=== PATIENT | female | born 1940 | race Caucasian/White ===

== ENCOUNTER 2017-03-27 05:39 | Emergency (ER) | payer OTHER ==
[~2017-03-27] VITALS: Ht 167.6 cm; Wt 68.0 kg
[~2017-03-27 05:39] MED LIST: LEVO100T5 PO; LISI40TA PO; NAPR375T PO; OXYB5TAB10 PO; PRIL20CA9 PO
[2017-03-27 05:43] VITALS: BP 215/100; PULSE 100; RESP 18; TEMP 97.3; O2SAT 97
[2017-03-27 06:01] VITALS: BP 197/95; PULSE 85; RESP 18; O2SAT 98
[2017-03-27] MEDS ORDERED: BACL10TA PO (06:05)
[2017-03-27 06:12] VITALS: O2SAT 98
[2017-03-27 06:15] LABS: BASOPHIL % 0.4 % (0.0-2.0); EOSINOPHIL # 0.1 TH/MM3 (0-0.4); HEMATOCRIT 38.7 % (35.0-46.0); HEMO FLAGS DIFF FINAL; LYMPH % 10.6 % (9.0-44.0); LYMPHOCYTE # 1.2 TH/MM3 (1.0-4.8); MEAN CELL VOLUME 90.1 FL (80.0-100.0); MEAN CORPUSCULAR HEMOGLOBIN 31.2 PG (27.0-34.0); MEAN CORPUSCULAR HGB CONC 34.7 % (32.0-36.0); MONO % 8.1 % (0.0-8.0); NEUT % 79.9 % (16.0-70.0); PLATELET COUNT 265 TH/MM3 (150-450); RED CELL DISTRIBUTION WIDTH 13.7 % (11.6-17.2); WHITE BLOOD COUNT 11.2 TH/MM3 (4.0-11.0)
--- NOTE | 2017-03-27 06:19 | PD ---
HPI Chief Complaint: Fall Time Seen by Provider: 06:00 Travel History International Travel<30 days: No Contact w/Intl Traveler<30days: No Traveled to known affect area: No History of Present Illness HPI The patient is a 76 year old female who presents to the [facility] emergency department with a history of right sided chest wall pain underneath her breast, headache, and neck pain that began on Monday afternoon when she fell backward while helping her cut tree branches. She reports that initially she did not have very much pain, however over time the pain has increased. She reports that yesterday morning it seemed to peak. She reports that she tried taking tramadol for the pain without relief. She reports that she fell backwards striking the back of her head on the dirt. She denies having any loss of consciousness. She has had nausea without vomiting. She denies having any numbness or tingling to her extremities. She denies having any new weakness to her extremities. She reports having pain in her chest with trying to take a deep breath. She reports that approximately 5 months ago she broke several ribs when she fell down some steps while walking backwards folding boxes. Otherwise on review of systems, the patient denies any recent fevers, cough, congestion, shortness of breath, abdominal pain, diarrhea, urinary symptoms, or neurologic symptoms. She reports that she has been moving her bowels regularly. [facility] Past Medical History Narrative Medical The patient's past medical history is significant for anxiety and depression, hypertension, hemorrhoids, hypothyroid disorder, acid reflux, spastic bladder, recurrent falls, history of rib fractures, history of osteoarthritis. Asthma: No Blood Disorders: Yes (HEMORRHOIDS) Anxiety: Yes Depression: Yes (AT TIMES) Heart Rhythm Problems: No Cancer: No Cardiovascular Problems: No High Cholesterol: No Chemotherapy: No Chest Pain: No Congestive Heart Failure: No COPD: No Diabetes: No Endocrine: Yes Gastrointestinal Disorders: Yes (HX REFLUX) Glaucoma: No Genitourinary: Yes (SPASTIC BLADDER, INCONTINENCE) Hepatitis: No Hiatal Hernia: No Hypertension: Yes Immune Disorder: No Medical other: Yes (RECENT FALL HIT HEAD 04/[address] GILLETTE TODAY) Musculoskeletal: Yes (NECK, ARTHRITIS) Neurologic: No Psychiatric: Yes (ANXIETY) Reproductive: No Respiratory: No Immunizations Current: Yes Radiation Therapy: No Sleep Apnea: No Thyroid Disease: Yes (UNDERACTIVE THYROID ) Tetanus Vaccination: Unknown Influenza Vaccination: No ?: Not Menopausal: Yes : 4 Para: 4 Past Surgical History Narrative Surgical The patient's past surgical history is significant for left knee surgery, endoscopy. Abdominal Surgery: No Cardiac Surgery: No Section: No Ear Surgery: No Endocrine Surgery: No Eye Surgery: No Genitourinary Surgery: No Gynecologic Surgery: No Oral Surgery: No Pacemaker: No Thoracic Surgery: No Other Surgery: Yes (left knee surgery 05/03) Social History Alcohol Use: No Tobacco Use: No Substance Use: No Allergies-Medications (Allergen,Severity, Reaction): Coded Allergies: No Known Allergies (Verified , 03/27/17) Reported Meds & Prescriptions Reported Meds & Active Scripts Active Reported Baclofen 10 Mg Tab 10 Mg PO TID Ditropan (Oxybutynin Chloride) 5 Mg Tab 5 Mg PO Q12HR Levothyroxine (Levothyroxine Sodium) 100 Mcg Tab 100 Mcg PO DAILY Lisinopril 40 Mg Tab Unknown Dose PO DAILY Review of Systems Except as stated in HPI: all other systems reviewed are Neg General / Constitutional: No: Fever Eyes: No: Visual changes HENT: Positive: Headaches, Neck Stiffness, Neck Pain Cardiovascular: Positive: Chest Pain or Discomfort (right-sided chest wall pain underneath the right breast) Respiratory: No: Shortness of Breath Gastrointestinal: Positive: Nausea, No: Vomiting, Diarrhea, Abdominal Pain Genitourinary: No: Dysuria Musculoskeletal: No: Pain Skin: No Rash Neurologic: Positive: Headache, No: Weakness, Focal Abnormalities, Change in Mentation, Slurred Speech, Sensory Disturbance Psychiatric: No: Depression Endocrine: No: Polydipsia Hematologic/Lymphatic: No: Easy Bruising Physical Exam Narrative General: The patient is a well-developed well-nourished female, uncomfortable appearing on arrival reporting a severe headache. Head and Neck exam: Head is normocephalic atraumatic. Eyes: EOMI, pupils are equal round and reactive to light. Nose: Midline septum with pink mucous membranes Mouth: Dentition unremarkable. Moist mucus membranes. Posterior oropharynx is not erythematous. No tonsillar hypertrophy. Uvula midline. Airway patent. Neck: No palpable lymphadenopathy. Trachea is midline. The patient was placed in a cervical collar. Cardiovascular: Regular rate and rhythm without murmurs, gallops, or rubs. Lungs: Clear to auscultation bilaterally. No wheezes, rhonchi, or rales. Abdomen: Soft, without tenderness to palpation in all 4 quadrants of the abdomen. No guarding, rebound, or rigidity. Normal bowel sounds are audible. No tenderness on palpation of McBurney's point. Extremities: No clubbing, cyanosis, or edema. 2+ pulses in all 4 extremities. No calf tenderness on palpation. No extremity pain or tenderness on palpation. No deformity or crepitus. She has full range of motion of her extremities. Back: No spinous process tenderness to palpation. No costovertebral angle tenderness to palpation. Neurologic Exam: Cranial nerves 2-12 were intact on exam. Strength is 5/5 in all 4 extremities. No sensory deficits noted. Skin Exam: No rash noted. Intact skin that is warm and dry. Data Data Last Documented VS Vital Signs Date Time Temp Pulse Resp B/P Pulse Ox O2 Delivery O2 Flow Rate FiO2 03/27/17 06:12 98 Room Air 03/27/17 06:01 85 18 197/95 03/27/17 05:[address] Brain W/O Iv Contrast(Rout) (03/27/17 06:03) Ct Cerv Spine W/O Contrast (03/27/17 06:03) Electrocardiogram (03/27/17 06:03) Complete Blood Count With Diff (03/27/17 06:03) Comprehensive Metabolic Panel (03/27/17 06:03) Troponin I (03/27/17 06:03) Prothrombin Time / Inr (Pt) (03/27/17 06:03) Act Partial Throm Time (Ptt) (03/27/17 06:03) Chest, Single Ap (03/27/17 06:03) Iv Access Insert/Monitor (03/27/17 06:03) Ecg Monitoring (03/27/17 06:03) Oximetry (03/27/17 06:03) Apply Cervical Collar (03/27/17 06:03) Morphine Inj (Morphine Inj) (03/27/17 06:30) Ondansetron Inj (Zofran Inj) (03/27/17 06:30) Morphine Inj (Morphine Inj) (03/27/17 06:31) Labs Laboratory Tests Test 03/27/17 06:05 White Blood Count 11.2 TH/MM3 Red Blood Count 4.30 MIL/MM3 Hemoglobin 13.4 GM/DL Hematocrit 38.7 % Mean Corpuscular Volume 90.1 FL Mean Corpuscular Hemoglobin 31.2 PG Mean Corpuscular Hemoglobin 34.7 % Concent Red Cell Distribution Width 13.7 % Platelet Count 265 TH/MM3 Mean Platelet Volume 7.8 FL Neutrophils (%) (Auto) 79.9 % Lymphocytes (%) (Auto) 10.6 % Monocytes (%) (Auto) 8.1 % Eosinophils (%) (Auto) 1.0 % Basophils (%) (Auto) 0.4 % Neutrophils # (Auto) 9.0 TH/MM3 Lymphocytes # (Auto) 1.2 TH/MM3 Monocytes # (Auto) 0.9 TH/MM3 Eosinophils # (Auto) 0.1 TH/MM3 Basophils # (Auto) 0.0 TH/MM3 CBC Comment DIFF FINAL Differential Comment Prothrombin Time 10.7 SEC Prothromb Time International 1.0 RATIO Ratio Activated Partial 28.0 SEC Thromboplast Time Sodium Level 134 MEQ/L Potassium Level 3.3 MEQ/L Chloride Level 102 MEQ/L Carbon Dioxide Level 22.0 MEQ/L Anion Gap 10 MEQ/L Blood Urea Nitrogen 16 MG/DL Creatinine 0.63 MG/DL Estimat Glomerular Filtration 91 ML/MIN Rate Random Glucose 138 MG/DL Calcium Level 9.2 MG/DL Total Bilirubin 0.7 MG/DL Aspartate Amino Transf 14 U/L (AST/SGOT) Alanine Aminotransferase 16 U/L (ALT/SGPT) Alkaline Phosphatase 97 U/L Troponin I LESS THAN 0.02 NG/ML Total Protein 7.7 GM/DL Albumin 3.9 GM/DL [facility] Medical Decision Making Medical Screen Exam Complete: Yes Emergency Medical Condition: Yes Medical Record Reviewed: Yes Differential Diagnosis Intracranial hemorrhage, versus cervical spine trauma, versus concussion, versus musculoskeletal strain Narrative Course During the course of the patients emergency department visit, the patients history, examination, and differential diagnosis were reviewed with the patient. The patient had IV access obtained and blood work sent for analysis. The patient was initially provided morphine 4 mg IV for pain, Zofran 4 mg IV for nausea. The patients laboratory studies were reviewed and remarkable for a white count of 11.2, hemoglobin 13.4, platelets 265 with 79.9 neutrophils, monocytes 8.1, CMP is remarkable for sodium of 134, potassium 3.3 which was supplemented orally , glucose 138, AST 14, troponin I less than 0.02, PT PTT within normal limits. Radiology studies were reviewed and remarkable for a chest x-ray that shows multiple healing/healed rib fractures. CT scan of the head and neck are pending. The patient's case will be checked out to the oncoming emergency physician to disposition based on the conclusion of the patient's workup. The patient will need to be reassessed regarding her pain control and her blood pressure elevation. Diagnosis Primary Impression: Head injury Qualified Code: S09.90XA - Head injury, initial encounter Additional Impression: Neck pain Alicja Cruz MD Mar 27, 2017 06:19
[2017-03-27 06:27] LABS: PROTHROMBIN TIME - PATIENT 10.7 SEC (9.8-11.6)
[2017-03-27] MEDS ORDERED: ONDANSETRON HCL 4 MG/2 ML VIAL IV PUSH ONE (06:30)
[2017-03-27] MEDS ORDERED: MORPHINE SULFATE 4 MG/ML INJ IV PUSH ONE ×2 (06:30→07:30)
[2017-03-27] MEDS ORDERED: MORPHINE SULFATE 8 MG/ML INJ ONE (06:31)
[2017-03-27 06:37] LABS: ANION GAP 10 MEQ/L (5-15); AST (GOT) 14 U/L (15-37); BLOOD UREA NITROGEN 16 MG/DL (7-18); CHLORIDE 102 MEQ/L (98-107); GLOMERULAR FILTRATION RATE 91 ML/MIN (>89); POTASSIUM 3.3 MEQ/L (3.5-5.1); SODIUM (NA) 134 MEQ/L (136-145)
[2017-03-27 06:38] LABS: ALT (GPT) 16 U/L (10-53)
--- NOTE | 2017-03-27 06:40 | RADRPT ---
EXAM DATE/TIME: 03/27/2017 06:02 [facility] COMPARISON: CHEST SINGLE AP, July 24, 2016, 20:02. INDICATIONS : Pain in the anterior chest under right breast from a fall a few days ago. MEDICAL HISTORY : None. SURGICAL HISTORY : None. ENCOUNTER: Initial ACUITY: 3 days PAIN SCORE: 6/10 LOCATION: Right anterior chest FINDINGS: A single view of the chest demonstrates the lungs to be symmetrically aerated without evidence of mas s, infiltrate or effusion. The cardiomediastinal contours are unremarkable. Osseous structures are intact. Multiple healed rib fractures CONCLUSION: Lungs remain clear. There are multiple healed rib fractures. Juan Jacobs MD on March 27, 2017 at 6:38 Board Certified Radiologist. This report was verified electronically.
[2017-03-27 06:41] LABS: ALKALINE PHOSPHATASE 97 U/L (45-117); TOTAL BILIRUBIN ADULT 0.7 MG/DL (0.2-1.0)
--- NOTE | 2017-03-27 06:52 | RADRPT ---
EXAM DATE/TIME: 03/27/2017 06:35 [facility] COMPARISON: No previous studies available for comparison. INDICATIONS : Trauma; patient fell 3 days ago. RADIATION DOSE: 30.13 CTDIvol (mGy) MEDICAL HISTORY : Hypertension. Gastroesophageal reflux disease. SURGICAL HISTORY : None. ENCOUNTER: Initial ACUITY: 3 days PAIN SCALE: 7/10 LOCATION: cranial TECHNIQUE: Multiple contiguous axial images were obtained of the head. Using automated exposure control and adj ustment of the mA and/or kV according to patient size, radiation dose was kept as low as reasonably a chievable to obtain optimal diagnostic quality images. DICOM format image data is available electro nically for review and comparison. FINDINGS: CEREBRUM: The ventricles are normal for age. No evidence of midline shift, mass lesion, hemorrhage or acute in farction. No extra-axial fluid collections are seen. POSTERIOR FOSSA: The cerebellum and brainstem are intact. The 4th ventricle is midline. The cerebellopontine angle i s unremarkable. EXTRACRANIAL: The visualized portion of the orbits is intact. SKULL: The calvaria is intact. No evidence of skull fracture. CONCLUSION: Normal examination. Juan Jacobs MD on March 27, 2017 at 6:50 Board Certified Radiologist. This report was verified electronically.
[2017-03-27] MEDS ORDERED: POTASSIUM CHLORIDE 20 MEQ CONTROLLED RELEASE TAB PO ONE (07:00)
--- NOTE | 2017-03-27 07:05 | RADRPT ---
EXAM DATE/TIME: 03/27/2017 06:35 [facility] COMPARISON: No previous studies available for comparison. INDICATIONS : Trauma; patient fell 3 days ago and complains of increasing neck pain. RADIATION DOSE: 18.05 CTDIvol (mGy) MEDICAL HISTORY : Hypertension. Gastroesophageal reflux disease. SURGICAL HISTORY : None. ENCOUNTER: Initial ACUITY: 3 days PAIN SCALE: 7/10 LOCATION: neck TECHNIQUE: Volumetric scanning of the cervical spine was performed. Multiplanar reconstructions in the sagittal, coronal and oblique axial planes were performed. Using automated exposure control and adjustment o f the mA and/or kV according to patient size, radiation dose was kept as low as reasonably achievable to obtain optimal diagnostic quality images. DICOM format image data is available electronically f or review and comparison. FINDINGS: Alignment: Mild anterolisthesis is noted of C3 on C4. Craniocervical and cervical vertebral body alignment are o therwise intact. Osseous structures and facet joints: Vertebral bodies are intact without evidence of compression deformity. Moderate facet arthropathy is identified. There is joint space narrowing, subchondral sclerosis and marginal spurring. Posterior el ements are intact. Intervertebral disc spaces: Degenerative disc disease ranging from mild to severe is noted. Significant disc space narrowing with marginal spondylosis is noted at C4-5, C5-6 and C6-7. Disc osteophyte complexes at C4-5 and C5-6 are causing anterior epidural effacement but no significan t spinal cord compression. Moderate bilateral foraminal stenosis is noted at C4-5, C5-6 and C6-7. There is no evidence of significant soft disc herniation. Neurologic structures: Unremarkable CONCLUSION: Degenerative disc disease and facet arthropathy as described. Multilevel foraminal stenosis. No evidence of acute bony injury or traumatic listhesis. Jonathan Quinn MD on March 27, 2017 at 6:58 Board Certified Radiologist. This report was verified electronically.
--- NOTE | 2017-03-27 07:25 | PD ---
Physical Exam Date Seen by Provider: Mar 27, 2017 Time Seen by Provider: 07:00 Narrative The patient was signed out to me by Dr. Cruz at change of shift. We're awaiting the CT results of her head and neck. We are also watching her blood pressure. The patient states the pain is much improved after having the morphine. Blood pressure was still 228/98. She states she takes lisinopril at home. I have written for Vasotec 2.5 mg I V times one dose and for milligrams further of the morphine. Data Data Last Documented VS Vital Signs Date Time Temp Pulse Resp B/P Pulse Ox O2 Delivery O2 Flow Rate FiO2 03/27/17 08:52 78 199/88 03/27/17 08:33 98.2 [address] Brain W/O Iv Contrast(Rout) (03/27/17 06:03) Ct Cerv Spine W/O Contrast (03/27/17 06:03) Electrocardiogram (03/27/17 06:03) Complete Blood Count With Diff (03/27/17 06:03) Comprehensive Metabolic Panel (03/27/17 06:03) Troponin I (03/27/17 06:03) Prothrombin Time / Inr (Pt) (03/27/17 06:03) Act Partial Throm Time (Ptt) (03/27/17 06:03) Chest, Single Ap (03/27/17 06:03) Iv Access Insert/Monitor (03/27/17 06:03) Ecg Monitoring (03/27/17 06:03) Oximetry (03/27/17 06:03) Apply Cervical Collar (03/27/17 06:03) Morphine Inj (Morphine Inj) (03/27/17 06:30) Ondansetron Inj (Zofran Inj) (03/27/17 06:30) Morphine Inj (Morphine Inj) (03/27/17 06:31) Potassium Chloride (Kcl) (03/27/17 07:00) Enalaprilat Inj (Vasotec Inj) (03/27/17 07:30) Morphine Inj (Morphine Inj) (03/27/17 07:30) Hydralazine Inj (Apresoline Inj) (03/27/17 09:00) Labs Laboratory Tests Test 03/27/17 06:05 White Blood Count 11.2 TH/MM3 Red Blood Count 4.30 MIL/MM3 Hemoglobin 13.4 GM/DL Hematocrit 38.7 % Mean Corpuscular Volume 90.1 FL Mean Corpuscular Hemoglobin 31.2 PG Mean Corpuscular Hemoglobin 34.7 % Concent Red Cell Distribution Width 13.7 % Platelet Count 265 TH/MM3 Mean Platelet Volume 7.8 FL Neutrophils (%) (Auto) 79.9 % Lymphocytes (%) (Auto) 10.6 % Monocytes (%) (Auto) 8.1 % Eosinophils (%) (Auto) 1.0 % Basophils (%) (Auto) 0.4 % Neutrophils # (Auto) 9.0 TH/MM3 Lymphocytes # (Auto) 1.2 TH/MM3 Monocytes # (Auto) 0.9 TH/MM3 Eosinophils # (Auto) 0.1 TH/MM3 Basophils # (Auto) 0.0 TH/MM3 CBC Comment DIFF FINAL Differential Comment Prothrombin Time 10.7 SEC Prothromb Time International 1.0 RATIO Ratio Activated Partial 28.0 SEC Thromboplast Time Sodium Level 134 MEQ/L Potassium Level 3.3 MEQ/L Chloride Level 102 MEQ/L Carbon Dioxide Level 22.0 MEQ/L Anion Gap 10 MEQ/L Blood Urea Nitrogen 16 MG/DL Creatinine 0.63 MG/DL Estimat Glomerular Filtration 91 ML/MIN Rate Random Glucose 138 MG/DL Calcium Level 9.2 MG/DL Total Bilirubin 0.7 MG/DL Aspartate Amino Transf 14 U/L (AST/SGOT) Alanine Aminotransferase 16 U/L (ALT/SGPT) Alkaline Phosphatase 97 U/L Troponin I LESS THAN 0.02 NG/ML Total Protein 7.7 GM/DL Albumin 3.9 GM/DL [facility] Medical Record Reviewed: Yes Supervised Visit with RUTH: No Critical Care Narrative 76-year-old female who fell several days ago, presents with head pain. The patient has no evidence of acute neck injury or intracranial injury. The patient does have old rib fractures noted on chest x-ray. She'll be given 2 doses of IV pchest pain or chest pressure. Pin medicines. She has tramadol at home but does not touch her pain. She'll be driven for prescription for Lortabs. She'll also be instructed to use moist heat on the areas that are sore. She is instructed to follow up with her primary care physician within the week. Her blood pressure was elevated here and she hadn't taken her blood pressure medicine. She was complaining of no chest pain, chest pressure per children instructed to check her blood pressure when at home. It is still elevated, she is instructed to call her primary care physician. Diagnosis Primary Impression: Head injury Qualified Code: S09.90XA - Head injury, initial encounter Additional Impressions: Neck pain HTN (hypertension) Patient Instructions: Narcotic given in the ED Additional Instruction: Moist heat 2-3 days. Check blood pressure and if it continues to stay high, follow up with her primary care physician. Follow up with her primary care physician within one week. Scripts Hydrocodone-Acetaminophen (Lortab)5-325 Mg Tab1 Tab PO Q6H PRN (PAIN) #20 TAB Ref 0 Prov:Jerry Faustin MD 03/27/17 Disposition: 01 DISCHARGE HOME Condition: Stable Jerry Faustin MD Mar 27, 2017 07:25
[2017-03-27] MEDS ORDERED: ENALAPRILAT 1.25 MG/ML VIAL IV PUSH ONE (07:30)
[2017-03-27] MEDS ORDERED: HYDR-3533 PO (07:31)
[2017-03-27 08:33] VITALS: BP 199/90; PULSE 76; RESP 18; TEMP 98.2; O2SAT 99
[2017-03-27 08:52] VITALS: BP 199/88; PULSE 78
[2017-03-27] MEDS ORDERED: hydrALAZINE HCL 20 MG/ML VIAL IV PUSH ONE (09:00)
--- NOTE | 2017-03-27 13:25 | EKG ---
Date Performed: 03/27/2017 Time Performed: 07:12:46 PTAGE: 76 years EKG: Sinus rhythm MINIMAL VOLTAGE CRITERIA FOR LVH, CONSIDER NORMAL VARIANT ABNORMAL QRS-T ANGLE ABNORMAL ECG Compared to prior tracing no significant change PREVIOUS TRACING : 07/24/16 @ 20:55 DOCTOR: Avinash Bach Interpretating Date/Time 03/27/2017 13:22:48
== END 2017-03-27 09:58 | disposition home or self-care (01) ==
LOC: NEPE 05:39
DX: S09.90XA Unspecified injury of head, initial encounter (principal); M54.2 Cervicalgia; I10 Essential (primary) hypertension; K21.9 Gastro-esophageal reflux disease without esophagitis; E03.9 Hypothyroidism, unspecified; M13.80 Other specified arthritis, unspecified site; F41.9 Anxiety disorder, unspecified; W18.30XA Fall on same level, unspecified, initial encounter; Z91.81 History of falling
CPT/HCPCS: 70450; 71010; 72125; 80053; 84484; 85025; 85610; 85730; 93005; 96374; 96375; 96376; 99285; J2270; J2405

== ENCOUNTER 2017-04-17 16:08 | Emergency (ER) | payer OTHER ==
[~2017-04-17] VITALS: Ht 165.1 cm; Wt 78.9 kg
[~2017-04-17 16:08] MED LIST changes: +BACL10TA PO; +HYDR-3533 PO; -NAPR375T PO; -PRIL20CA9 PO
[2017-04-17 16:11] VITALS: BP 187/80; PULSE 98; RESP 16; TEMP 99.2; O2SAT 98
[2017-04-17] MEDS ORDERED: SODIUM CHLOR 0.9% 1000 ML INJ 1,000 ML IV SCH (16:23)
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
[2017-04-17] MEDS ORDERED: HYDR-3533 PO (16:30)
[2017-04-17] MEDS ORDERED: FLUO40CA PO (16:30)
[2017-04-17] MEDS ORDERED: SODIUM CHLORIDE 0.9% FLUSH 5 ML FLUSH IV FLUSH PRN (16:30)
[2017-04-17 17:01] VITALS: BP 150/69; PULSE 88; RESP 18; O2SAT 95
--- NOTE | 2017-04-17 17:05 | RADRPT ---
EXAM DATE/TIME: 04/17/2017 16:35 [facility] COMPARISON: CHEST SINGLE AP, March 27, 2017, 6:02. INDICATIONS : Fever, cough. MEDICAL HISTORY : Hypertension. Gastroesophageal reflux disease. SURGICAL HISTORY : None. ENCOUNTER: Initial ACUITY: 2 days PAIN SCORE: 0/10 LOCATION: Bilateral chest FINDINGS: No significant new focal pleural or parenchymal opacities. Cardiomediastinal contours are stable. Rem ainder of the exam is unchanged. CONCLUSION: 1. No acute abnormality or significant interval change. Doug Perdue MD on April 17, 2017 at 17:02 Board Certified Radiologist. This report was verified electronically.
[2017-04-17 17:06] LABS: AUTOMATED NEUTROPHIL # 8.5 TH/MM3 (1.8-7.7); BASOPHIL % 0.1 % (0.0-2.0); EOSINOPHIL % 0.4 % (0.0-4.0); HEMATOCRIT 32.9 % (35.0-46.0); LYMPH % 6.7 % (9.0-44.0); LYMPHOCYTE # 0.7 TH/MM3 (1.0-4.8); MEAN CELL VOLUME 90.7 FL (80.0-100.0); MEAN CORPUSCULAR HEMOGLOBIN 30.7 PG (27.0-34.0); MEAN CORPUSCULAR HGB CONC 33.9 % (32.0-36.0); MONO % 9.4 % (0.0-8.0); NEUT % 83.4 % (16.0-70.0); PLATELET COUNT 306 TH/MM3 (150-450); RED BLOOD COUNT 3.62 MIL/MM3 (4.00-5.30); RED CELL DISTRIBUTION WIDTH 12.4 % (11.6-17.2); WHITE BLOOD COUNT 10.2 TH/MM3 (4.0-11.0)
[2017-04-17 17:09] LABS: GLUCOSE,URINE NEG (NEG); KETONE, URINE NEG (NEG); NITRITE,URINE NEG (NEG)
[2017-04-17 17:11] LABS: HEMO FLAGS DIFF FINAL
[2017-04-17 17:15] LABS: BLOOD, URINE MOD (NEG)
[2017-04-17 17:16] LABS: METHOD OF COLLECTION CATH; URINE COLOR YELLOW (YELLW/STRAW)
[2017-04-17 17:17] LABS: CHLORIDE 100 MEQ/L (98-107); POTASSIUM 3.7 MEQ/L (3.5-5.1); SODIUM (NA) 134 MEQ/L (136-145)
[2017-04-17 17:21] LABS: ANION GAP 11 MEQ/L (5-15); BICARBONATE 23.1 MEQ/L (21.0-32.0); BLOOD UREA NITROGEN 14 MG/DL (7-18); RBC, URINE 0-3 /hpf (0-3)
[2017-04-17 17:22] LABS: BACTERIA, URINE MOD /hpf
[2017-04-17 17:24] LABS: ALT (GPT) 15 U/L (10-53); AST (GOT) 8 U/L (15-37); GLOMERULAR FILTRATION RATE 57 ML/MIN (>89)
[2017-04-17 17:25] LABS: TOTAL BILIRUBIN ADULT 0.5 MG/DL (0.2-1.0)
[2017-04-17 17:26] LABS: COMMENT (UR) CULTURE INDICATED; CULTURE IF INDICATED CULTURE INDICATED
[2017-04-17 17:27] LABS: ALKALINE PHOSPHATASE 100 U/L (45-117)
[2017-04-17 17:28] LABS: CREATINE KINASE 26 U/L (26-192)
[2017-04-17] MEDS ORDERED: cefTRIAXone INJ 1,000 MG in SODIUM CHLORIDE 0.9% INJ 100 ML IV ONE (17:30)
[2017-04-17 17:32] LABS: COCAINE, URINE NEG (NEG)
[2017-04-17 17:37] LABS: BARBITURATES, URINE NEG (NEG)
[2017-04-17] MEDS ORDERED: CEFU1TAB20 PO (17:37)
[2017-04-17 17:40] LABS: AMPHETAMINE, URINE NEG (NEG)
[2017-04-17] MEDS ORDERED: CEFUROXIME AXETIL 500 MG TAB PO ONE ×2 (17:45)
[2017-04-17 18:57] VITALS: BP 175/78; PULSE 82; RESP 18; O2SAT 96
== END 2017-04-17 19:08 | disposition home or self-care (01) ==
LOC: PHED 16:08
DX: N30.01 Acute cystitis with hematuria (principal); B96.20 Unspecified Escherichia coli [E. coli] as the cause of diseases classified elsewhere; R53.83 Other fatigue; M79.1 Myalgia; R63.0 Anorexia; R50.9 Fever, unspecified; I10 Essential (primary) hypertension; E07.9 Disorder of thyroid, unspecified; Z86.59 Personal history of other mental and behavioral disorders; Z87.19 Personal history of other diseases of the digestive system; Z87.448 Personal history of other diseases of urinary system; Z87.39 Personal history of other diseases of the musculoskeletal system and connective tissue
CPT/HCPCS: 71010; 80053; 80307; 81001; 82550; 84443; 85025; 87077; 87086; 87186; 87804; 96361; 96365; 99284; J0696; J7030